=== PATIENT | female | born 1945 | race Native Hawaiian/Other Pacific Islander ===

== ENCOUNTER 2017-02-02 08:05 | Emergency (ER) | payer OTHER ==
[~2017-02-02] VITALS: Ht 165.1 cm; Wt 54.4 kg
[2017-02-02 08:34] LABS: PLATELET COUNT 278 K/uL (152-353)
[2017-02-02 08:42] LABS: POTASSIUM 3.3 mmol/L (3.6-5.2); SODIUM 129 mmol/L (136-145)
[2017-02-02 09:03] VITALS: BP 140/74; TEMP 98.4
== END 2017-02-02 09:33 | disposition home or self-care (01) ==
LOC: ED 08:05
DX: J02.0 Streptococcal pharyngitis (principal)
CPT/HCPCS: 36415; 80053; 85027; 87804; 87880; 96372; 99283; J0696

== ENCOUNTER 2019-09-12 14:29 | Outpatient (CLI) | payer OTHER | END 2019-09-12 22:30 | disposition home or self-care (01) | LOC: MAMMO 14:29 | DX: Z12.31 Encounter for screening mammogram for malignant neoplasm of breast (principal); M81.0 Age-related osteoporosis without current pathological fracture ==

== ENCOUNTER 2020-04-17 10:31 | Outpatient (CLI) | payer OTHER ==
[~2020-04-17] VITALS: Ht 165.1 cm; Wt 68.5 kg
== END 2020-04-17 19:18 | disposition home or self-care (01) ==
LOC: INF 10:31
PROVIDERS: ATTEND Family Medicine
DX: M85.80 Other specified disorders of bone density and structure, unspecified site (principal)
CPT/HCPCS: 36415; 82310; 96372; J0897

== ENCOUNTER 2020-10-19 09:46 | Outpatient (CLI) | payer OTHER ==
[~2020-10-19] VITALS: Ht 165.1 cm; Wt 65.3 kg
== END 2020-10-19 19:03 | disposition home or self-care (01) ==
LOC: INF 09:46
PROVIDERS: ATTEND Family Medicine
DX: M85.80 Other specified disorders of bone density and structure, unspecified site (principal); M81.0 Age-related osteoporosis without current pathological fracture
CPT/HCPCS: 36415; 82310; 96372; J0897

== ENCOUNTER 2022-08-11 11:03 | Emergency (ER) | payer OTHER ==
[~2022-08-11] VITALS: Ht 165.1 cm; Wt 63.5 kg
[2022-08-11 11:35] LABS: PLATELET COUNT 232 K/uL (152-353)
[2022-08-11 11:39] LABS: POTASSIUM 4.3 mmol/L (3.6-5.2)
[2022-08-11 13:35] VITALS: BP 121/49; TEMP 98.1
== END 2022-08-11 13:35 | disposition home or self-care (01) ==
LOC: ED 11:03
PROVIDERS: Family Medicine
DX: J18.9 Pneumonia, unspecified organism (principal); J40 Bronchitis, not specified as acute or chronic
CPT/HCPCS: 80053; 85027; 94664; 99283

== ENCOUNTER 2022-11-18 12:41 | Outpatient (CLI) | payer OTHER ==
[2022-11-25] MEDS ORDERED: IPRAAER INH (19:56)
[2022-11-25] MEDS ORDERED: FENOFIBRATE54 MG PO (19:56)
[2022-11-25] MEDS ORDERED: EUTHYROX75 MCG PO (19:57)
[2022-11-25] MEDS ORDERED: ADVAIR HF2 INH (19:57)
== END 2022-11-18 18:56 | disposition home or self-care (01) ==
LOC: CT 12:41
PROVIDERS: ATTEND Internal Medicine Sleep Medicine
DX: J32.9 Chronic sinusitis, unspecified (principal); Z87.891 Personal history of nicotine dependence